=== PATIENT | female | born 1935 | race Caucasian/White ===

== ENCOUNTER 2017-08-22 22:32 | Inpatient (IN) | payer MEDICARE ==
[2017-08-22] MEDS ORDERED: Fentanyl 100 MCG/2 ML VIAL ONE (23:30)
[2017-08-23 00:20] LABS: #Eosinphils 0.2 thou/uL (0.0-0.7); #Lymphocytes 1.9 thou/uL (1.20-3.40); #Monocytes 0.7 thou/uL (0.11-0.59); #Neutrophils 9.4 thou/uL (1.40-6.50); %Basophils 0.2 % (0.0-1.0); %Eosinophils 1.8 % (0.0-10.0); %Lymphocytes 15.8 % (21.0-51.0); %Monocytes 5.6 % (0.0-10.0); %Neutrophils 76.5 % (42.0-75.0); Hemoglobin 7.5 g/dL (12.0-16.0); Mean Corpuscular HGB CONC 33.2 g/dL (32.0-36.0); Mean Corpuscular Hemoglobin 32.8 pg (27.0-31.0); Mean Corpuscular Volume 98.9 fl (81.0-99.0); Mean Platelet Volume 5.3 fL (7.4-10.4); Platelet Count 369 thou/uL (130-400); RBC Distribution Width 12.4 % (11.5-14.5); Red Blood Cell (RBC) Count 2.29 mill/uL (4.20-5.40); White Blood Cell (WBC) Count 12.3 thou/uL (4.8-10.8)
[2017-08-23] MEDS ORDERED: Ondansetron HCl/PF 4 MG/2 ML Vial IVP PRN (01:51)
[2017-08-23 02:12] LABS: #Eosinphils 0.2 thou/uL (0.0-0.7); #Lymphocytes 1.5 thou/uL (1.20-3.40); #Monocytes 0.6 thou/uL (0.11-0.59); #Neutrophils 11.1 thou/uL (1.40-6.50); %Basophils 0.1 % (0.0-1.0); %Eosinophils 1.2 % (0.0-10.0); %Lymphocytes 11.4 % (21.0-51.0); %Monocytes 4.6 % (0.0-10.0); %Neutrophils 82.6 % (42.0-75.0); Hemoglobin 7.2 g/dL (12.0-16.0); Mean Corpuscular HGB CONC 32.3 g/dL (32.0-36.0); Mean Corpuscular Hemoglobin 32.4 pg (27.0-31.0); Mean Platelet Volume 5.3 fL (7.4-10.4); Platelet Count 333 thou/uL (130-400); RBC Distribution Width 12.4 % (11.5-14.5); Red Blood Cell (RBC) Count 2.21 mill/uL (4.20-5.40); White Blood Cell (WBC) Count 13.5 thou/uL (4.8-10.8)
[2017-08-23] MEDS ORDERED: oxyCODONE/Acetaminophen 5 mg/325 mg Tablet PO PRN (02:29)
[2017-08-23 02:34] LABS: Anion Gap 14 mmol/L (10-20); BUN (Urea Nitrogen) 48 mg/dL (9.8-20.1); Calc. Creatinine Clearance 0 mL/min (70-130); Calcium 8.2 mg/dL (7.8-10.44); Carbon Dioxide 24 mmol/L (23-31); Chloride 95 mmol/L (98-107); Estimated GFR-MDRD 9; Glucose 120 mg/dL (83-110); Potassium 5.2 mmol/L (3.5-5.1); Sodium 128 mmol/L (136-145)
[2017-08-23] MEDS: Sodium Chloride 0.9% 1,000 ML IV SCH ×3 (02:35→21:11)
[2017-08-23] MEDS: Morphine 5 MG/ML SYRINGE SLOW IVP PRN ×2 (02:46→13:18)
[2017-08-23 02:57] VITALS: BMI 25.7
[2017-08-23] MEDS ORDERED: Furosemide 20 MG/2 ML VIAL SLOW IVP SCH (03:15)
[2017-08-23 05:21] LABS: Clarity Turbid (Clear); Specific Gravity, Urine 1.016 (1.002-1.036)
[2017-08-23 05:22] LABS: Leukocyte Unable to Interpret (Negative); Nitrite Unable to Interpret (Negative); pH, Urine 7.5 (5.0-9.0)
[2017-08-23 05:23] LABS: Bilirubin Unable to Interpret (Negative); Glucose, Urine (Dipstick) Unable to Interpret mg/dL (Negative); Protein, Urine (Dipstick) > or equal to 300 mg/dL (Neg-Trace); Urobilinogen UNABLE TO INTERPRET mg/dL (0.2-1.0)
[2017-08-23 05:25] LABS: Bacteria/HPF Rare-Few HPF (None Seen); Blood, Urine Unable to Interpret (Negative); Crystals/HPF 1+ AMORPH PHOS HPF (Negative); RBC/HPF GREATER THAN 50-TNTC HPF (0-3); Squamous Epithelial 0-3 HPF (0-3); WBC/HPF 21-50 HPF (0-3)
[2017-08-23] MEDS: Meropenem 1 GM in Sterile Water 20 ML SLOW IVP SCH ×2 (05:34→18:28)
[2017-08-23 07:47] LABS: #Basophils 0.1 thou/uL (0.0-0.2); #Eosinphils 0.1 thou/uL (0.0-0.7); #Lymphocytes 1.9 thou/uL (1.20-3.40); #Monocytes 0.5 thou/uL (0.11-0.59); #Neutrophils 7.8 thou/uL (1.40-6.50); %Basophils 0.7 % (0.0-1.0); %Eosinophils 1.4 % (0.0-10.0); %Lymphocytes 18.6 % (21.0-51.0); %Monocytes 4.6 % (0.0-10.0); %Neutrophils 74.7 % (42.0-75.0); Hemoglobin 7.1 g/dL (12.0-16.0); Mean Corpuscular HGB CONC 33.2 g/dL (32.0-36.0); Mean Corpuscular Volume 96.5 fl (81.0-99.0); Mean Platelet Volume 5.5 fL (7.4-10.4); Platelet Count 276 thou/uL (130-400); RBC Distribution Width 14.2 % (11.5-14.5); Red Blood Cell (RBC) Count 2.23 mill/uL (4.20-5.40); White Blood Cell (WBC) Count 10.4 thou/uL (4.8-10.8)
--- NOTE | 2017-08-23 08:03 | HP ---
CHIEF COMPLAINT: Dysuria. HISTORY OF PRESENT ILLNESS: This is an 81-year-old female with a known history of nonischemic cardiomyopathy, left bundle branch block, breast cancer, osteoarthritis, recurrent urinary tract infection, who presents with chief complaint of hematuria. It appears that the patient has had a long history of chronic kidney disease, accompanied by intermittent urinary tract infections. The patient did have a chronic indwelling Whitaker catheter placed approximately a month ago. At that point in time, at least the patient's family understanding was that the Whitaker catheter was placed to alleviate a degree of urinary retention and hopes that it might also improve the patient's renal disease. The patient felt that the catheter was uncomfortable and therefore, the Whitaker catheter was removed after 2 weeks of a trial period. Approximately 1.5 weeks ago, the patient again had a Whitaker catheter placed. She had clear urine going through her Whitaker catheter until earlier yesterday when she went to take a bath then afterwards felt that maybe she had dislodged the catheter. She started having some hematuria noted through the catheter at that point in time and per guidance from their outpatient urological team, the patient and her daughter at home self removed that catheter. However, the patient continued to have hematuria and therefore presented to the emergency department in [place], where a new Whitaker was placed and since then it has been draining bloody urine. In the emergency department in [place], the patient was also noted to have anemia with a hemoglobin of 7.8 compared to her prior last known hemoglobin of 10 and was therefore transferred to our facility for urological evaluation. At the time of my evaluation, the patient is accompanied by her daughter at bedside. The patient is mostly focused on the fact that she has pain where her catheter is and she requests pain medication several times during this interview. The patient's daughter at bedside helped to provide the majority of the history leading up to her current condition as noted above. REVIEW OF SYSTEMS: Constitutional: Denies any recent changes in weight. Denies any home fevers or chills. HEENT: No recent headaches, dizziness, or change in vision. Cardiovascular: No new any chest pressure, chest pain, left-sided arm numbness or tingling. Respiratory: Denies any recent URIs. denies any recent colds, cough, congestion, postnasal drip. Gastrointestinal: Denies any recent issues with nausea, vomiting, abdominal pain, constipation or diarrhea. Genitourinary : As per above. Musculoskeletal: No new myalgias or arthralgias. The remainder of the review of systems otherwise negative. PAST MEDICAL HISTORY: As per above, 1. Nonischemic cardiomyopathy with an EF of 35%, moderate coronary artery disease, recurrent urinary tract infections as noted above. 2. Chronic kidney disease. 3. History of breast cancer. 4. Osteoarthritis status post multiple orthopedic surgeries. 5. Status post bilateral knee replacement. 6. Status post bilateral hip replacement with subsequent revision surgery of the left hip. 7. Status post right shoulder surgery. 8. Status post lumbar spinal surgery. 9. Status post lumpectomy for breast cancer. HOME MEDICATIONS: Please see the EMR for full details. Briefly, the patient currently takes polyethylene glycol, atorvastatin, methimazole, acetaminophen, temazepam, metoprolol and potassium citrate. DRUG ALLERGIES: No known drug allergies. FAMILY HISTORY: The patient denies any known family history of renal disease, renal cancer, bladder disease, bladder cancer, difficulty with urinating. SOCIAL HISTORY: The patient lives at home, her daughter who lives with her at bedside. States that both herself and her sister, meaning the patient's 2 daughters would be the joint medical decision makers, if the patient is unable to make her own medical decisions. At this point in time, the patient endorses that she wishes to be a do not intubate, do not resuscitate; however, she is amenable to procedures and to blood transfusions if needed. PHYSICAL EXAMINATION: GENERAL: The patient is awake, alert, oriented to self and place. HEENT: Normocephalic, atraumatic. Slightly dry mucous membranes. Equal ocular motions are intact. CARDIOVASCULAR: S1, S2. No murmurs, rubs or gallops. Pulses 2+ bilateral upper extremities, no pitting pedal edema. RESPIRATORY: Reasonable air movement. Limited anterior examination. No wheezes, rales or rhonchi, otherwise clear to auscultation. ABDOMEN: Protuberant, positive bowel sounds, soft, slightly tender to palpation (6:36) suprapubic medial and suprapubic to the left, not tender to palpation right suprapubic region. Hwitaker is noted to be draining a dark maroon fluid. MUSCULOSKELETAL: Significant chronic sequelae of rheumatoid arthritis noted bilateral upper extremities. NEUROLOGIC: Able to move all 4 extremities independently on command and able to self reposition in the bed with minimal assistance. LABORATORY DATA AND IMAGING: WBC 13.5, hemoglobin 7.2, hematocrit 22.2, platelets 333, sodium 128, potassium 5.2, chloride 95, BUN 48, creatinine is 4.79, glucose 120, calcium 8.2. ASSESSMENT AND PLAN: 1. An 81-year-old female with chief complaint of hematuria, had one hematuria with accompanying symptomatic anemia with no other obvious source of blood loss. The patient currently has a Whitaker in place, Urology has been consulted. Serial H and H q.6 hours, transfuse as needed. Given that the patient does have a known history of cardiovascular disease. We will transfuse for a hemoglobin goal of 8.0. Unclear exact etiology of patient's hematuria. Will also order ultrasound of the bladder, ultrasound of the kidneys. 2. Acute anemia. Please see above. Currently, hemodynamically stable. Continue with IV fluids. Transfusion as noted above and continue to monitor. 3. Acute kidney injury on chronic renal disease. Appreciate Nephrology consultation. Ultrasound of the kidneys as noted above. The patient does have a known history of chronic renal disease. Hold nephrotoxic medications. IV fluids as above. Unclear etiology of progression of renal disease at this point in time. 4. Urinary tract infection despite appropriate empiric oral antibiotics based on prior urine cultures, it appears that in the past the patient has mostly grown beta hemolytic Streptococci and Escherichia coli from her urine. She states that she was previously taking Cipro for the last 4 days for urinary tract infection. She had an UA at [place] that suggested the possibility of urinary tract infection both confirmed by the presence of blood as well. Empiric meropenem given that the patient also has accompanying leukocytosis. 5. Leukocytosis could be reactive or could be indicative of active infection. Empiric antibiotics, IV fluids as above. 6. Suprapubic pain and dysuria. Multiple possible etiologies at this point in time, symptomatic management with low dose morphine with close monitoring the patient's respiratory and status of mentation. 7. Chronic insomnia for which the patient currently takes temazepam at home. Discussed with the patient, we will hold that medication, particularly in light of concurrent utilization of pain regimen. If her pain is controlled and she still has insomnia, can consider resuming home medication regimen. 8. History of cardiomyopathy, continue with the patient's home metoprolol. Close monitoring of the patient's respiratory status. Lasix 20 mg IV x1 between blood transfusion. 9. Diet: N.p.o. in case any evaluative procedures are needed for evaluation and treatment. 10. Activity: As tolerated. Deep venous thrombosis prophylaxis, sequentials. No pharmacological deep venous thrombosis prophylaxis secondary to concern of active bleed. 11. Admit the patient to inpatient medical/surgical with telemetry. Thank you for asking me to care for the patient. Questions or concerns, contact me at [facility]. ALEXEY
[2017-08-23] MEDS ORDERED: Meropenem 1 GM in Sodium Chloride 0.9% 100 ML IVPB SCH (09:00)
[2017-08-23] MEDS ORDERED: Famotidine/PF 20 mg/2ml Vial SLOW IVP SCH (09:00)
[2017-08-23] MEDS: Famotidine 40 MG/4 ML VIAL SLOW IVP SCH (09:00)
[2017-08-23] MEDS ORDERED: ePHEDrine/0.9% NaCl/PF SYRINGE 50 mg/10 ml ONE (09:28)
[2017-08-23] MEDS ORDERED: PHENYLEPHRINE-NS 100 MCG/ML 10 ML SYRINGE ONE (09:28)
[2017-08-23] MEDS ORDERED: PROPOFOL 200 MG/20 ML VIAL ONE (09:28)
[2017-08-23] MEDS ORDERED: Lidocaine 1% PF 5 ML VIAL ONE (09:28)
[2017-08-23] MEDS ORDERED: Polyethylene Glycol 3350 17 GM Packet PO PRN (09:29)
--- NOTE | 2017-08-23 11:39 | ULT ---
BILATERAL RENAL ULTRASOUND: Date: 08/23/17 HISTORY: Hematuria. COMPARISON: None. TECHNIQUE: Sagittal and transverse imaging of the kidneys is performed. FINDINGS: Suboptimal evaluation of the right kidney. Grossly, no hydronephrosis. Right kidney measures 10.7 x 6.0 x 6.0 cm. There is a hypoechoic focus in the right kidney measuring 2.0 x 2.2 x 2.0 cm, which may represent a small cyst. There is a second smaller hypoechoic focus with subtle areas of increased ec hogenicity in the right kidney measuring 1.6 x 1.6 x 1.6 cm. Hemorrhagic or complex cyst is favored. There is severe left-sided hydronephrosis. Left kidney measures 6.0 x 6.5 x 11.6 cm. There is a Whitaker catheter in the urinary bladder. There is a large echogenic focus in the dependent p ortion of the urinary bladder measuring 10.0 x 7.6 x 9.6 cm. Differential considerations include a la rge amount of clot in the urinary bladder. Mucosal based abnormality such as neoplasm cannot be exclu ded. IMPRESSION: 1. Severe left-sided hydronephrosis. 2. Extensive echogenic material in the urinary bladder as defined above. Clinical correlation is ess ential. Cystoscopy, as well as a urology consult, is strongly recommended. CODE T. POS: ANDRE
--- NOTE | 2017-08-23 12:55 | CON ---
DATE OF CONSULTATION: 08/23/2017 CONSULTING PHYSICIAN: Dr. Long REASON FOR CONSULTATION: Acute kidney injury. REASON FOR ADMISSION: Hematuria and dysuria. HISTORY OF PRESENT ILLNESS: An 81-year-old white female with history of chronic kidney disease stage 4, CHF, osteoarthritis, acidosis, nephrolithiasis, came to the hospital with hematuria and dysuria. The patient is being admitted. She had a renal ultrasound done which showed blockage. Her creatini ne baseline runs around 2.5 to 2.7 with the last one around early part of July and was found to h ave elevated this month and this morning this was found to be 4.7. She was also anemic at 7.1. She was on Epogen as outpatient and hemoglobin usually runs around 9 and 10. She was given some blood tr ansfusion and she is waiting for Urology consult. No fever or chills. She is having abdominal diste ntion and abdominal discomfort. She is currently kept n.p.o. No fever or chills reported. Daughter was at the bedside. PAST MEDICAL HISTORY: Positive for CHF, chronic kidney disease stage 4, history of breast cancer an d metabolic acidosis, anemia. PAST SURGICAL HISTORY: Knee replacement and shoulder surgery and spinal surgery. HOME MEDICATIONS: Methimazole, Restoril, Toprol and Epogen. ALLERGIES: No known drug allergies. SOCIAL HISTORY: No smoking, alcohol or drugs. FAMILY HISTORY: No history of kidney disease reported. REVIEW OF SYSTEMS: The following complete review of systems was negative, unless otherwise mentioned in the HPI or below: Constitutional: Weight loss or gain, ability to conduct usual activities. Skin: Rash, itching. Eyes: Double vision, pain. ENT/Mouth: Nose bleeding, neck stiffness, pain, tenderness. Cardiovascular: Palpitations, dyspnea on exertion, orthopnea. Respiratory: Shortness of breath, wheezing, cough, hemoptysis, fever or night sweats. Gastrointestinal: Poor appetite, abdominal pain, heartburn, nausea, vomiting, constipation, or diarrhea. Genitourinary: Urgency, frequency, dysuria, nocturia. Musculoskeletal: Pain, swelling. Neurologic/Psychiatric: Anxiety, depression. Allergy/Immunologic: Skin rash, bleeding tendency. PHYSICAL EXAMINATION: GENERAL: This is a thin-built female in no apparent distress. VITAL SIGNS: Temperature 98.1, pulse 91, respiratory 18, blood pressure 113/57. HEENT: Atraumatic, normocephalic. Oral mucosa is moist. NECK: Supple. HEART: S1, S2 heard. Rate and rhythm regular. RESPIRATORY: Clear. MUSCULOSKELETAL: No tenderness, no edema. DERMATOLOGIC: No skin rash. NEUROLOGIC: Alert, awake. PSYCHIATRIC: Mood and affect normal. LABORATORY AND X-RAY FINDINGS: Hemoglobin 7.1, potassium is 5.2, sodium is 128, BUN 48, creatinine i s 4.7. ASSESSMENT AND PLAN: 1. Acute kidney injury on chronic kidney stage 4. Renal function with worsening most likely from ob struction, renal ultrasound that shows left side obstruction. Follow with Urology. 2. Hyperkalemia. 3. Hyponatremia. 4. Hypochloremia. 5. Anemia. Agree with transfusion. 6. Left-sided hydronephrosis. 7. Hematuria, rule out infection. 8. Anemia. We will continue Epogen once a week. Continue supportive care. No acute indication for dialysis. We will follow.
[2017-08-23] MEDS ORDERED: Epoetin (ESRD) 10,000 UNITS/ML VIAL SC SCH (13:00)
[2017-08-23] MEDS ORDERED: Famotidine 40 MG/4 ML VIAL SLOW IVP SCH (13:30)
[2017-08-23] MEDS: Atorvastatin Calcium 20 MG TAB PO SCH (13:32)
[2017-08-23] MEDS: Methimazole 5 MG TAB PO SCH (13:33)
[2017-08-23 13:55] LABS: #Basophils 0.1 thou/uL (0.0-0.2); #Eosinphils 0.1 thou/uL (0.0-0.7); #Lymphocytes 1.5 thou/uL (1.20-3.40); #Monocytes 0.5 thou/uL (0.11-0.59); #Neutrophils 5.8 thou/uL (1.40-6.50); %Basophils 0.8 % (0.0-1.0); %Eosinophils 1.4 % (0.0-10.0); %Lymphocytes 18.4 % (21.0-51.0); %Monocytes 5.9 % (0.0-10.0); %Neutrophils 73.6 % (42.0-75.0); Hemoglobin 8.6 g/dL (12.0-16.0); Mean Corpuscular HGB CONC 32.9 g/dL (32.0-36.0); Mean Corpuscular Hemoglobin 31.9 pg (27.0-31.0); Mean Platelet Volume 5.6 fL (7.4-10.4); Platelet Count 287 thou/uL (130-400); RBC Distribution Width 14.3 % (11.5-14.5); Red Blood Cell (RBC) Count 2.69 mill/uL (4.20-5.40); White Blood Cell (WBC) Count 7.9 thou/uL (4.8-10.8)
[2017-08-23 14:32] LABS: Anion Gap 13 mmol/L (10-20); BUN (Urea Nitrogen) 45 mg/dL (9.8-20.1); Calc. Creatinine Clearance 9 mL/min (70-130); Calcium 8.1 mg/dL (7.8-10.44); Carbon Dioxide 23 mmol/L (23-31); Chloride 97 mmol/L (98-107); Estimated GFR-MDRD 9; Glucose 108 mg/dL (83-110); Potassium 5.3 mmol/L (3.5-5.1); Sodium 128 mmol/L (136-145)
--- NOTE | 2017-08-23 14:48 | PDOC.PN ---
- Subjective Encounter Start Date: 08/23/17 Encounter Start Time: 14:47 Subjective: still with suprapubic tenderness and pain -: care discussed w daughter in detail - Objective Resuscitation Status: Resuscitation Status DNR:Do Not Resuscitate MAR Reviewed: Yes Vital Signs & Weight: Vital Signs (12 hours) Temp Pulse Pulse Resp BP BP Pulse Ox 08/23/17 11:45 98.1 F 94 20 113/57 L 95 08/23/17 08:01 99.0 F 83 16 94 L 08/23/17 07:48 99.0 F 83 16 100/56 L 94 L 08/23/17 05:45 98.3 F 79 18 95/53 L 08/23/17 05:30 99.4 F 88 18 109/50 L 08/23/17 04:41 98.6 F 87 18 104/59 L 93 L Weight Weight 140 lb 8 oz I&O: 08/22/17 08/23/17 08/24/17 06:59 06:59 06:59 Intake Total 375 773 Output Total 1900 250 Balance -1525 523 Result Diagrams: 08/23/17 13:37 08/23/17 13:37 Additional Labs: Laboratory Tests 06/10/17 07/08/17 08/04/17 08:53 09:00 08:33 Hgb Sodium Creatinine 2.73 H 2.53 H 3.54 H 08/22/17 08/22/17 08/23/17 19:45 23:59 02:02 Hgb 7.5 L Sodium 128 L Creatinine 4.80 H 4.79 H 08/23/17 08/23/17 08/23/17 02:02 07:35 13:37 Hgb 7.2 L 7.1 L 8.6 L Sodium Creatinine 08/23/17 13:37 Hgb Sodium 128 L Creatinine 4.73 H Radiology Reviewed by me: Yes (Renal US-severe L hydronephrosis.Bladder clot w distension) Phys Exam - Physical Examination Constitutional: NAD pale HEENT: PERRLA, moist MMs, sclera anicteric, oral pharynx no lesions Neck: no nodes, no JVD, supple, full ROM Respiratory: no wheezing, no rales, no rhonchi, clear to auscultation bilateral Cardiovascular: RRR, no significant murmur Gastrointestinal: soft, no distention suprapubic tenderness Musculoskeletal: no edema, pulses present Neurological: non-focal, normal sensation, moves all 4 limbs Psychiatric: normal affect, A&O x 3 Skin: no rash Dx/Plan (1) Acute on chronic kidney failure Code(s): N17.9 - ACUTE KIDNEY FAILURE, UNSPECIFIED; N18.9 - CHRONIC KIDNEY DISEASE, UNSPECIFIED Status: Acute (2) Hematuria Code(s): R31.9 - HEMATURIA, UNSPECIFIED Status: Acute (3) Hydronephrosis, left Code(s): N13.30 - UNSPECIFIED HYDRONEPHROSIS Status: Acute (4) Acute blood loss anemia Code(s): D62 - ACUTE POSTHEMORRHAGIC ANEMIA Status: Acute (5) Hyponatremia Code(s): E87.1 - HYPO-OSMOLALITY AND HYPONATREMIA Status: Acute (6) UTI (urinary tract infection) Status: Acute (7) Non-ischemic cardiomyopathy Code(s): I42.8 - OTHER CARDIOMYOPATHIES Status: Acute (8) HLD (hyperlipidemia) Code(s): E78.5 - HYPERLIPIDEMIA, UNSPECIFIED Status: Chronic - Plan cont current plan of care, continue antibiotics, DVT proph w/SCDs care discussed w urology -will see pt in PM.US results notified -: Keep NPO.may need cystoscopy/bladder irrigation. -: H/h improved post 2 unit transfusion.Monitor -: Renal Fx stable but worse than baselimne d/t severe L hydronephrosis -: nephrology recs appreciated. * .change Whitaker. Bladder scan w 100 cc in am.will repeat bladder scan * Sodium low ? etiology. Cont NS and monitor closely w slow correction goal.nephrology on board. * cont empiric antibiotic. follow Cx results * am labs Review of Systems - Review of Systems Constitutional: weakness, malaise Gastrointestinal: Abdominal Pain Genitourinary: Hematuria - Medications/Allergies Allergies/Adverse Reactions: Allergies Allergy/AdvReac Type Severity Reaction Status Date / Time No Known Drug Allergies Allergy Verified 10/22/14 09:20 Medications: Current Medications Acetaminophen (Tylenol) 650 mg PO Q4H PRN PRN Reason: Pain Atorvastatin Calcium (Lipitor) 20 mg PO DAILY NIKO Last Admin: 08/23/17 13:32 Dose: 20 mg Epoetin Guanaco (Procrit) 10,000 units SC Q7D [facility] Last Admin: 08/23/17 14:07 Dose: 10,000 units Famotidine (Pepcid) 20 mg SLOW IVP Q24HR [facility] Last Admin: 08/23/17 14:09 Dose: Not Given Famotidine (Pepcid) 20 mg SLOW IVP NOW [facility] Stop: 08/23/17 15:00 Last Admin: 08/23/17 14:21 Dose: 20 mg Sodium Chloride (Normal Saline 0.9%) 1,000 mls @ 100 mls/hr IV .Q10H [facility] Last Admin: 08/23/17 13:18 Dose: 1,000 mls Meropenem 1 gm/ Sterile Water 20 mls @ 240 mls/hr SLOW IVP 0600,1800 [facility] Last Admin: 08/23/17 05:34 Dose: 20 mls Methimazole () 5 mg PO DAILY [facility] Last Admin: 08/23/17 13:33 Dose: 5 mg Metoprolol Succinate (Toprol Xl) 12.5 mg PO BID [facility] Last Admin: 08/23/17 13:32 Dose: 12.5 mg Morphine Sulfate (Morphine) 2 mg SLOW IVP Q4H PRN PRN Reason: Breakthrough Pain Last Admin: 08/23/17 13:18 Dose: 2 mg Ondansetron HCl (Zofran) 4 mg IVP Q6H PRN PRN Reason: Nausea/Vomiting Oxycodone/Acetaminophen (Percocet 5/325) 1 tab PO Q4H PRN PRN Reason: Severe Pain (7-10) Last Admin: 08/23/17 05:33 Dose: 1 tab Polyethylene Glycol (Miralax) 17 gm PO DAILYPRN PRN PRN Reason: Constipation Sodium Chloride (Flush - Normal Saline) 10 ml IVF Q12HR [facility] Sodium Chloride (Flush - Normal Saline) 10 ml IVF PRN PRN PRN Reason: Saline Flush
--- NOTE | 2017-08-23 18:58 | CON ---
DATE OF CONSULTATION: 08/23/2017 CHIEF COMPLAINT: Gross hematuria. HISTORY: Ms. Mo is an 81-year-old female with a long history of renal insufficiency and incompl ete bladder emptying. She typically has postvoid residuals of 200 to 500 mL. Recently, she came to the office requesting a Whitaker catheter for the incomplete bladder emptying. She had a catheter place d on 08/09/2017. She did well with the catheter until 3 days ago when she developed gross hematuria. She continued to have problems with gross hematuria and urine was coming around the catheter, so luis spence presented to the emergency room. In the emergency room, she had an ultrasound demonstrated left-si ded hydronephrosis and some echogenic material in the bladder. She has a prior history of hydronephr osis of the left kidney, although it was not persistent. She has tolerated Whitaker catheters in the [facility] without any bleeding issues. She has had chronic renal insufficiency with creatinines typically r unning in the 2.5 range. During this admission, her creatinine was elevated to 4.7. She is also not ed to be anemic with a hemoglobin of 7 and then received 2 units of blood. PAST MEDICAL HISTORY: Rheumatoid arthritis, chronic renal insufficiency, congestive heart failure, c hronic anemia, history of breast cancer. PAST SURGICAL HISTORY: Knee replacement surgery, shoulder surgery, spine surgery. HOME MEDICATIONS: Toprol, Epogen, Restoril and methimazole. ALLERGIES: No known drug allergies. SOCIAL HISTORY: She is a nonsmoker, denies excessive alcohol use. FAMILY HISTORY: Noncontributory. REVIEW OF SYSTEMS: Respiratory: No shortness of breath. Cardiovascular: Denies chest pain or palp itations. Gastrointestinal: Denies chronic constipation, diarrhea. Genitourinary: Please see hist ory of present illness. Neurologic: No symptoms of stroke. PHYSICAL EXAMINATION: GENERAL: She is awake and alert. She is in no distress at this time. VITAL SIGNS: Most recent vital signs, temperature 98.3, blood pressure 122/56, pulse 94, respiratory rate 16. LABORATORY DATA: Sodium 128, potassium 5.3, chloride 97, BUN 45, creatinine 4.7. White count 7.9, h emoglobin 8.6, hematocrit 26.1. IMPRESSION: Ms. Mo is an 81-year-old female with chronic renal insufficiency and long history o f incomplete bladder emptying. She has developed gross hematuria. This is a new problem as she has never had gross hematuria in the past. She has had hydronephrosis in the left kidney past, but not t o a severe degree. This was noted on an ultrasound during this admission. She was also noted to hav e some echogenic material in the bladder. I have recommended cystoscopy with clot evacuation, possib le TURBT and left ureteral stent placement. The procedure, potential limitations, alternatives, and complications have been discussed with her and her daughter. She wished to proceed. PLAN: Cystoscopy, clot evacuation, possible TURBT, possible double-J stent placement, left kidney.
[2017-08-23 19:49] LABS: #Eosinphils 0.1 thou/uL (0.0-0.7); #Lymphocytes 1.3 thou/uL (1.20-3.40); #Monocytes 0.6 thou/uL (0.11-0.59); %Basophils 0.2 % (0.0-1.0); %Eosinophils 0.8 % (0.0-10.0); %Monocytes 5.1 % (0.0-10.0); %Neutrophils 81.8 % (42.0-75.0); Hemoglobin 8.5 g/dL (12.0-16.0); Mean Corpuscular HGB CONC 33.5 g/dL (32.0-36.0); Mean Corpuscular Hemoglobin 31.7 pg (27.0-31.0); Mean Corpuscular Volume 94.6 fl (81.0-99.0); Mean Platelet Volume 5.3 fL (7.4-10.4); Platelet Count 273 thou/uL (130-400); RBC Distribution Width 14.4 % (11.5-14.5); Red Blood Cell (RBC) Count 2.67 mill/uL (4.20-5.40)
[2017-08-23] MEDS ORDERED: Fentanyl 250 MCG/5 ML VIAL ONE (22:50)
[2017-08-23] MEDS ORDERED: Iothalamate Meglumine 60% 50 ML VIAL FS ONE (22:50)
[2017-08-24] MEDS ORDERED: Ondansetron HCl/PF 4 MG/2 ML Vial IVP PRN (00:13)
[2017-08-24] MEDS ORDERED: Promethazine HCl 25 MG/ML VIAL SLOW IVP PRN (00:13)
[2017-08-24] MEDS ORDERED: Promethazine HCl 25 MG/ML VIAL IM PRN (00:13)
[2017-08-24 03:31] LABS: #Eosinphils 0.1 thou/uL (0.0-0.7); #Lymphocytes 1.8 thou/uL (1.20-3.40); #Monocytes 0.6 thou/uL (0.11-0.59); #Neutrophils 6.8 thou/uL (1.40-6.50); %Basophils 0.5 % (0.0-1.0); %Eosinophils 0.9 % (0.0-10.0); %Lymphocytes 19.2 % (21.0-51.0); %Monocytes 5.9 % (0.0-10.0); %Neutrophils 73.4 % (42.0-75.0); Hemoglobin 11.2 g/dL (12.0-16.0); Mean Corpuscular Hemoglobin 31.4 pg (27.0-31.0); Mean Corpuscular Volume 95.3 fl (81.0-99.0); Platelet Count 192 thou/uL (130-400); RBC Distribution Width 14.9 % (11.5-14.5); Red Blood Cell (RBC) Count 3.58 mill/uL (4.20-5.40); White Blood Cell (WBC) Count 9.2 thou/uL (4.8-10.8)
[2017-08-24 03:45] LABS: Anion Gap 17 mmol/L (10-20); BUN (Urea Nitrogen) 44 mg/dL (9.8-20.1); Calc. Creatinine Clearance 10 mL/min (70-130); Calcium 8.4 mg/dL (7.8-10.44); Carbon Dioxide 18 mmol/L (23-31); Chloride 104 mmol/L (98-107); Estimated GFR-MDRD 9; Glucose 99 mg/dL (83-110); Potassium 5.1 mmol/L (3.5-5.1); Sodium 134 mmol/L (136-145)
[2017-08-24] MEDS: Morphine 5 MG/ML SYRINGE SLOW IVP PRN (04:20)
--- NOTE | 2017-08-24 04:20 | CON ---
DATE OF PROCEDURE: 08/24/2017 PREOPERATIVE DIAGNOSES: Gross hematuria, left hydronephrosis. POSTOPERATIVE DIAGNOSIS: Bladder cancer, clot retention, obstructed left ureter from tumor. SURGEON: Douglas Mckee M.D. ANESTHESIA: General. INDICATIONS: Ms. Mo is an 81-year-old female who has a long history of incomplete bladder emptying. She had a Whitaker catheter placed approximately 2 weeks ago. Two days ago she developed gross hematuria. She presented to the hospital and was noted to be in clot retention. Imaging included a renal ultrasound that demonstrated a marked left hydronephrosis and a large 10 cm mass in her bladder. She is brought to the operating room for endoscopic evaluation. PROCEDURE IN DETAIL: The patient was given general anesthesia and IV antibiotics. She is sterilely prepped and draped in lithotomy position. The cystoscope was passed in the bladder. Bladder was full of clot. Prolonged hand irrigation of the bladder was required to deem her clot free. There was a huge amount of clot in her bladder. Once all of the clot was evacuated she was noted to have a 5 cm tumor in the left bladder wall covering the left ureteral orifice which could never be visualized. The right ureteral orifice appeared normal. Transurethral resection of the tumor was performed. After complete resection of the tumor and hemostasis a 3-way Whitaker catheter was placed and continuous bladder irrigation was initiated in the operating room. The catheter irrigated easily and clearly. The patient tolerated the procedure well. She was transported from the operating room to recovery room in stable condition. COMPLICATIONS: None. ESTIMATED BLOOD LOSS: During the procedure, approximately 20 mL, although, there was at least 1 liter of clot in her bladder. ALEXEY
[2017-08-24] MEDS: Meropenem 1 GM in Sterile Water 20 ML SLOW IVP SCH ×2 (05:34→18:06)
[2017-08-24 09:46] LABS: #Eosinphils 0.1 thou/uL (0.0-0.7); #Lymphocytes 1.3 thou/uL (1.20-3.40); #Monocytes 0.5 thou/uL (0.11-0.59); #Neutrophils 6.9 thou/uL (1.40-6.50); %Basophils 0.5 % (0.0-1.0); %Eosinophils 0.6 % (0.0-10.0); %Lymphocytes 14.5 % (21.0-51.0); %Monocytes 5.6 % (0.0-10.0); %Neutrophils 78.8 % (42.0-75.0); Hemoglobin 8.9 g/dL (12.0-16.0); Mean Corpuscular Hemoglobin 30.7 pg (27.0-31.0); Mean Corpuscular Volume 93.1 fl (81.0-99.0); Mean Platelet Volume 5.2 fL (7.4-10.4); Platelet Count 213 thou/uL (130-400); RBC Distribution Width 14.9 % (11.5-14.5); White Blood Cell (WBC) Count 8.7 thou/uL (4.8-10.8)
[2017-08-24 09:54] LABS: INR-International Normal Ratio 1.2; PTT 24.4 SEC (22.9-36.1); Prothrombin Time 14.9 SEC (12.0-14.7)
[2017-08-24] MEDS: Famotidine 40 MG/4 ML VIAL SLOW IVP SCH (10:20)
[2017-08-24] MEDS: Atorvastatin Calcium 20 MG TAB PO SCH (10:20)
[2017-08-24] MEDS: Methimazole 5 MG TAB PO SCH (10:20)
[2017-08-24] MEDS: Sodium Chloride 0.9% 1,000 ML IV SCH ×2 (10:20→18:06)
[2017-08-24] MEDS ORDERED: Fentanyl 100 MCG/2 ML VIAL ONE (11:34)
[2017-08-24] MEDS ORDERED: Midazolam HCl 2 mg/2 ml Vial ONE (11:34)
[2017-08-24] MEDS ORDERED: Sodium Bicarbonate 2.5 MEQ/5 ML VIAL ONE (11:34)
--- NOTE | 2017-08-24 13:53 | CT ---
CT GUIDED LEFT PERCUTANEOUS NEPHROSTOMY TUBE PLACEMENT: Date: 08-24-17 History: Left hydronephrosis in patient with hematuria and echogenic material seen in the urinary narayan dder on recent renal sonogram. Place of a left ureteral stent was unsuccessful. A percutaneous nephro stomy tube as requested. Technique: The procedure including risks and complications were explained to the patient as well as the patient' s family and informed consent was obtained. The patient is on IV antibiotic prior to this procedure. The patient was placed on angiographic table in supine position and limited sonographic evaluation of the left kidney was performed. However, the kidney was noted to be rotated an due to close proximity of bowel and spleen on sonographic evaluation, the patient was transported to CT scan for further ev aluation of adjacent structures prior to nephrostomy tube placement. The patient was placed on the CT scan stable in the prone position. Limited noncontrast CT images wer e obtained through the level of the kidneys with good localizer in place overlying the left kidney. I maging demonstrated rotation of the kidney with the long axis of the kidney oriented in the AP dimens ion. Kidney was also slightly displaced anteriorly which is related to the rotated nature of the kidn ey. The area overlying the left kidney was then marked and meticulously prepped and draped in the usu al sterile fashion. Skin and subcutaneous tissues were infiltrated with buffered 1% Lidocaine for loc al anesthesia. Conscious sedation was performed with the intravenous administration of 25 mg of Fenta nyl and 0.5 mg of Versed. The area overlying the right flank was meticulously prepped and draped in the usual sterile fashion. Skin and subcutaneous tissues were infiltrated with buffered 1% Lidocaine for local anesthesia. A 22 gauge Chiba needle was advanced followed by three axial noncontrasted CT images. This sequence w as repeated until the needle was placed into a peripheral dilated left renal stefan. The needle was th en exchanged over a .018 inch guidewire for a 6 Yemeni accustick sheath with stiff inter cannula in t he inter dilator. Positioning of the accustick sheath was confirmed with axial noncontrasted CT image s. The introducer sheath was then exchanged over a .035 inch Amplax guidewire for an 8 Yemeni tissue dil ator followed by placement of an 8 Yemeni percutaneous nephrostomy tube. The distal portion of the ne phrostomy tube as positioned in the left renal pelvis. Slightly blood tinged urine was aspirated from the collecting system, and a specimen was sent for labs. The catheter was placed to gravity drainage and sutured in place utilizing 2-0 ethilon suture materia l. Dry sterile dressing was placed. The patient tolerated the procedure well without immediate complication. Patient was transported to h ospital room in stable condition. FINDINGS: Rotation of the left kidney with the long axis oriented in the AP dimensions. As a result, this proce dure was performed utilizing CT guidance due to close proximity of bowel and spleen to the left kidne y. An 8 Yemeni nephrostomy tube was successfully placed via a peripheral stefan with the distal portio n positioned in the renal pelvis. Initial imaging of the kidneys includes a portion of the upper pelvis demonstrates distention of the urinary bladder. The urinary bladder is incompletely imaged on this exam. IMPRESSION: 1. Left hydronephrosis with technically successful placement of an left sided percutaneous nephrostom y tube. 2. Incomplete visualization of the urinary bladder on the obtained images, but the urinary bladder do es appear distended. POS: ANDRE
[2017-08-24] MEDS: HYDROcodone/Acetaminophen 5/325 mg Tablet PO PRN ×2 (14:04→18:12)
[2017-08-24 14:30] LABS: #Eosinphils 0.1 thou/uL (0.0-0.7); #Lymphocytes 0.9 thou/uL (1.20-3.40); #Monocytes 0.5 thou/uL (0.11-0.59); #Neutrophils 8.2 thou/uL (1.40-6.50); %Basophils 0.5 % (0.0-1.0); %Eosinophils 0.8 % (0.0-10.0); %Lymphocytes 9.2 % (21.0-51.0); %Monocytes 5.1 % (0.0-10.0); %Neutrophils 84.3 % (42.0-75.0); Hemoglobin 8.8 g/dL (12.0-16.0); Mean Corpuscular HGB CONC 32.4 g/dL (32.0-36.0); Mean Corpuscular Volume 95.8 fl (81.0-99.0); Mean Platelet Volume 5.7 fL (7.4-10.4); Platelet Count 206 thou/uL (130-400); Red Blood Cell (RBC) Count 2.83 mill/uL (4.20-5.40); White Blood Cell (WBC) Count 9.7 thou/uL (4.8-10.8)
--- NOTE | 2017-08-24 15:39 | PDOC.PN ---
- Subjective Encounter Start Date: 08/24/17 Encounter Start Time: 15:39 Subjective: s/p nephrostomy tube this am.s/p cystoscopy last night -: feelw well. no new complaint - Objective Resuscitation Status: Resuscitation Status DNR:Do Not Resuscitate MAR Reviewed: Yes Vital Signs & Weight: Vital Signs (12 hours) Temp Pulse Pulse Resp BP BP Pulse Ox 08/24/17 12:43 98.1 F 86 18 119/70 95 08/24/17 08:00 98.1 F 86 16 94 L 08/24/17 07:25 98.1 F 86 16 136/82 95 08/24/17 04:42 98.3 F 97 16 127/65 98 08/24/17 03:54 98.3 F 97 18 127/65 Weight Weight 140 lb 8 oz I&O: 08/23/17 08/24/17 08/25/17 06:59 06:59 06:59 Intake Total 375 06636 6000 Output Total 1900 13861 6426 Balance -5846 -906 -475 Result Diagrams: 08/24/17 14:21 08/24/17 03:25 Additional Labs: Microbiology 08/23/17 04:45 Urine hensley catheter Urine Culture - Preliminary NO GROWTH AT 24 HOURS Laboratory Tests 08/23/17 08/23/17 08/24/17 02:02 13:37 03:25 Sodium 128 L 128 L 134 L Creatinine 4.79 H 4.73 H 4.59 H Phys Exam - Physical Examination Constitutional: NAD HEENT: PERRLA, moist MMs, sclera anicteric, oral pharynx no lesions Neck: no nodes, no JVD, supple, full ROM Respiratory: no wheezing, no rales, no rhonchi, clear to auscultation bilateral Cardiovascular: RRR, no significant murmur Gastrointestinal: soft, non-tender, no distention, positive bowel sounds 3 way hensley w bloody urine in bag.L nephrostomy tube in place Musculoskeletal: no edema, pulses present Neurological: non-focal, normal sensation, moves all 4 limbs Psychiatric: normal affect, A&O x 3 Skin: no rash Dx/Plan (1) Acute on chronic kidney failure Code(s): N17.9 - ACUTE KIDNEY FAILURE, UNSPECIFIED; N18.9 - CHRONIC KIDNEY DISEASE, UNSPECIFIED Status: Acute (2) Acute blood loss anemia Code(s): D62 - ACUTE POSTHEMORRHAGIC ANEMIA Status: Acute Comment: s/p 4 unit transfusion (3) Bladder cancer Status: Acute (4) Hydronephrosis, left Code(s): N13.30 - UNSPECIFIED HYDRONEPHROSIS Status: Acute (5) Hematuria Code(s): R31.9 - HEMATURIA, UNSPECIFIED Status: Acute (6) Hyponatremia Code(s): E87.1 - HYPO-OSMOLALITY AND HYPONATREMIA Status: Acute (7) UTI (urinary tract infection) Status: Acute (8) Non-ischemic cardiomyopathy Code(s): I42.8 - OTHER CARDIOMYOPATHIES Status: Acute (9) HLD (hyperlipidemia) Code(s): E78.5 - HYPERLIPIDEMIA, UNSPECIFIED Status: Chronic - Plan plan discussed w/ family, PT/OT, out of bed/ambulate, DVT proph w/SCDs cont continous bladder irrigation.urology help appreciated. -: S/P nephrostomy tube.s/p bladder tumor removal.Path pending -: H/H stable.monitor. -: potassium higher side.monitor.sodium much better.renal Fx stable. -: nephrology following.Avoid any nephrotoxic meds * .D/W daughter. leaning towrds more conservative approach * am labs * supportive care. * DNR Review of Systems - Review of Systems Constitutional: negative: fever, chills, sweats, weakness, malaise, other ENT: negative: Ear Pain, Ear Discharge, Nose Pain, Nose Discharge, Nose Congestion, Mouth Pain, Mouth Swelling, Throat Pain, Throat Swelling, Other Respiratory: negative: Cough, Dry, Shortness of Breath, Hemoptysis, SOB with Excertion, Pleuritic Pain, Sputum, Wheezing Cardiovascular: negative: chest pain, palpitations, orthopnea, paroxysmal nocturnal dyspnea, edema, light headedness, other Gastrointestinal: negative: Nausea, Vomiting, Abdominal Pain, Diarrhea, Constipation, Melena, Hematochezia, Other Genitourinary: negative: Dysuria, Frequency, Incontinence, Hematuria, Retention , Other Musculoskeletal: negative: Neck Pain, Shoulder Pain, Arm Pain, Back Pain, Hand Pain, Leg Pain, Foot Pain, Other Skin: negative: Rash, Lesions, Humberto, Bruising, Other Neurological: negative: Weakness, Numbness, Incoordination, Change in Speech, Confusion, Seizures, Other - Medications/Allergies Allergies/Adverse Reactions: Allergies Allergy/AdvReac Type Severity Reaction Status Date / Time No Known Drug Allergies Allergy Verified 10/22/14 09:20 Medications: Current Medications Acetaminophen (Tylenol) 650 mg PO Q4H PRN PRN Reason: Pain Hydrocodone Bitart/Acetaminophen ([place] 5/325) 1 tab PO Q4H PRN PRN Reason: Pain Last Admin: 08/24/17 14:04 Dose: 1 tab Atorvastatin Calcium (Lipitor) 20 mg PO DAILY [facility] Last Admin: 08/24/17 10:20 Dose: Not Given Epoetin Guanaco (Procrit) 10,000 units SC Q7D [facility] Last Admin: 08/23/17 14:07 Dose: 10,000 units Famotidine (Pepcid) 20 mg SLOW IVP Q24HR [facility] Last Admin: 08/24/17 10:20 Dose: Not Given Sodium Chloride (Normal Saline 0.9%) 1,000 mls @ 100 mls/hr IV .Q10H [facility] Last Admin: 08/24/17 10:20 Dose: Not Given Meropenem 1 gm/ Sterile Water 20 mls @ 240 mls/hr SLOW IVP 0600,1800 [facility] Last Admin: 08/24/17 05:34 Dose: 20 mls Methimazole () 5 mg PO DAILY [facility] Last Admin: 08/24/17 10:20 Dose: Not Given Metoprolol Succinate (Toprol Xl) 12.5 mg PO BID [facility] Last Admin: 08/24/17 10:20 Dose: Not Given Morphine Sulfate (Morphine) 2 mg SLOW IVP Q4H PRN PRN Reason: Breakthrough Pain Last Admin: 08/24/17 04:20 Dose: 2 mg Ondansetron HCl (Zofran) 4 mg IVP Q6H PRN PRN Reason: Nausea/Vomiting Last Admin: 08/24/17 04:28 Dose: 4 mg Oxycodone/Acetaminophen (Percocet 5/325) 1 tab PO Q4H PRN PRN Reason: Severe Pain (7-10) Last Admin: 08/23/17 05:33 Dose: 1 tab Polyethylene Glycol (Miralax) 17 gm PO DAILYPRN PRN PRN Reason: Constipation Sodium Chloride (Flush - Normal Saline) 10 ml IVF Q12HR [facility] Last Admin: 08/24/17 10:21 Dose: Not Given Sodium Chloride (Flush - Normal Saline) 10 ml IVF PRN PRN PRN Reason: Saline Flush
--- NOTE | 2017-08-24 20:36 | EKG ---
Test Reason : URGENT Blood Pressure : / mmHG Vent. Rate : 098 BPM Atrial Rate : 098 BPM P-R Int : 116 ms QRS Dur : 152 ms QT Int : 422 ms P-R-T Axes : 075 -41 073 degrees QTc Int : 538 ms Atrial-sensed ventricular-paced rhythm Abnormal ECG When compared with ECG of 23-AUG-2017 00:22, (Unconfirmed) Vent. rate has increased BY 14 BPM Confirmed by OLAYINKA GARCIA, . SBa ([id number]) on 08/24/2017 8:35:52 PM Referred By: HOLLAND Confirmed By:DR. Risa BHAGAT MD
[2017-08-24] MEDS: Temazepam 15 MG CAP PO PRN (21:41)
[2017-08-25] MEDS: Sodium Chloride 0.9% 1,000 ML IV SCH ×3 (01:47→12:37)
[2017-08-25 05:26] LABS: #Eosinphils 0.2 thou/uL (0.0-0.7); #Lymphocytes 1.2 thou/uL (1.20-3.40); #Monocytes 0.5 thou/uL (0.11-0.59); %Basophils 0.2 % (0.0-1.0); %Monocytes 7.4 % (0.0-10.0); %Neutrophils 72.4 % (42.0-75.0); Hemoglobin 7.5 g/dL (12.0-16.0); Mean Corpuscular HGB CONC 33.4 g/dL (32.0-36.0); Mean Corpuscular Hemoglobin 31.5 pg (27.0-31.0); Mean Corpuscular Volume 94.2 fl (81.0-99.0); Mean Platelet Volume 5.7 fL (7.4-10.4); Platelet Count 181 thou/uL (130-400); RBC Distribution Width 14.8 % (11.5-14.5); Red Blood Cell (RBC) Count 2.38 mill/uL (4.20-5.40); White Blood Cell (WBC) Count 6.9 thou/uL (4.8-10.8)
[2017-08-25 05:32] LABS: Anion Gap 13 mmol/L (10-20); BUN (Urea Nitrogen) 35 mg/dL (9.8-20.1); Calc. Creatinine Clearance 11 mL/min (70-130); Calcium 7.7 mg/dL (7.8-10.44); Carbon Dioxide 19 mmol/L (23-31); Chloride 107 mmol/L (98-107); Estimated GFR-MDRD 10; Glucose 106 mg/dL (83-110); Potassium 4.3 mmol/L (3.5-5.1); Sodium 135 mmol/L (136-145)
[2017-08-25] MEDS: Meropenem 1 GM in Sterile Water 20 ML SLOW IVP SCH ×2 (06:51→17:51)
[2017-08-25] MEDS: Atorvastatin Calcium 20 MG TAB PO SCH (08:46)
[2017-08-25] MEDS: Methimazole 5 MG TAB PO SCH (08:47)
[2017-08-25] MEDS: Polyethylene Glycol 3350 17 GM Packet PO SCH (08:48)
[2017-08-25] MEDS: Acetaminophen 325 MG TAB PO PRN (08:48)
--- NOTE | 2017-08-25 09:16 | PRG ---
DATE OF SERVICE: 08/24/2017 SUBJECTIVE: Patient was seen and examined at bedside and overnight events noted. Patient denies any shortness of breath or chest pain or palpitation. No history of nausea or vomiting or diarrhea or f ever or chills or cramps. OBJECTIVE: GENERAL: This is an elderly female in no apparent distress. VITAL SIGNS: Temperature 98.1, pulse 86, respiratory rate 18, blood pressure 119/70. HEENT: Atraumatic, normocephalic. Oral mucosa is moist. NECK: Supple. CARDIOVASCULAR: S1, S2 heard. Rate and rhythm regular. RESPIRATORY: Clear to auscultation. GASTROINTESTINAL: Abdomen is soft. MUSCULOSKELETAL: No tenderness. No edema. DERMATOLOGIC: No skin rash. NEUROLOGIC: Alert and awake and oriented x3. No focal neurologic deficits. Moving all the extremit ies. PSYCHIATRIC: Mood and affect normal. LABORATORY DATA: Hemoglobin is 8.8, potassium is 5.1, BUN is 44, and creatinine is 4.5. ASSESSMENT AND PLAN: 1. Acute kidney injury on chronic kidney disease stage 4. Renal function is stable. Avoid nephroto xins. Follow with Urology. 2. Bladder mass with hematuria. 3. Hyperkalemia, better. 4. Hyponatremia. 5. Anemia. 6. Left-sided hydronephrosis. Potassium is better. Creatinine is slightly better. We will follow. Follow up with Urology for fur ther plans.
[2017-08-25] MEDS: HYDROcodone/Acetaminophen 5/325 mg Tablet PO PRN ×2 (10:14→20:23)
[2017-08-25] MEDS: Famotidine 40 MG/4 ML VIAL SLOW IVP SCH (10:14)
--- NOTE | 2017-08-25 14:52 | PDOC.PN ---
- Subjective Encounter Start Date: 08/25/17 Encounter Start Time: 14:50 Subjective: no new events. no new complaints however feels that her stomach is bloated -: care discussed in extensive detail w daughter & Niece - Objective Resuscitation Status: Resuscitation Status DNR:Do Not Resuscitate MAR Reviewed: Yes Vital Signs & Weight: Vital Signs (12 hours) Temp Pulse Resp BP Pulse Ox 08/25/17 10:16 98.2 F 08/25/17 08:50 100.7 F H 08/25/17 08:00 98.2 F 84 18 92 L 08/25/17 04:47 99 F 94 18 100/58 L 92 L Weight Weight 140 lb 8 oz I&O: 08/24/17 08/25/17 08/26/17 06:59 06:59 06:59 Intake Total 63965 24665 6060 Output Total 81960 79872 [id number] [phone] [phone] Result Diagrams: 08/25/17 05:03 08/25/17 05:03 Additional Labs: Microbiology 08/24/17 12:00 Urine Nephrostomy tube Urine Culture - Preliminary NO GROWTH AT 24 HOURS 08/23/17 04:45 Urine hensley catheter Urine Culture - Preliminary NO GROWTH AT 24 HOURS Laboratory Tests 08/04/17 08/22/17 08/23/17 08:33 19:45 02:02 Creatinine 3.54 H 4.80 H 4.79 H 08/23/17 08/24/17 08/25/17 13:37 03:25 05:03 Creatinine 4.73 H 4.59 H 4.14 H Phys Exam - Physical Examination Constitutional: NAD pale HEENT: PERRLA, moist MMs, sclera anicteric, oral pharynx no lesions Neck: no nodes, no JVD, supple, full ROM Respiratory: no wheezing, no rales, no rhonchi, clear to auscultation bilateral Cardiovascular: RRR, no significant murmur Gastrointestinal: soft, positive bowel sounds distended,TTP mild ,diffusely Musculoskeletal: no edema, pulses present Neurological: non-focal, normal sensation, moves all 4 limbs Psychiatric: normal affect, A&O x 3 Skin: no rash Dx/Plan (1) Acute on chronic kidney failure Code(s): N17.9 - ACUTE KIDNEY FAILURE, UNSPECIFIED; N18.9 - CHRONIC KIDNEY DISEASE, UNSPECIFIED Status: Acute (2) Acute blood loss anemia Code(s): D62 - ACUTE POSTHEMORRHAGIC ANEMIA Status: Acute Comment: s/p 4 unit transfusion (3) Bladder cancer Status: Acute Comment: Path report pending (4) Hydronephrosis, left Code(s): N13.30 - UNSPECIFIED HYDRONEPHROSIS Status: Acute (5) Hematuria Code(s): R31.9 - HEMATURIA, UNSPECIFIED Status: Acute (6) Hyponatremia Code(s): E87.1 - HYPO-OSMOLALITY AND HYPONATREMIA Status: Acute (7) UTI (urinary tract infection) Status: Acute (8) Non-ischemic cardiomyopathy Code(s): I42.8 - OTHER CARDIOMYOPATHIES Status: Acute (9) HLD (hyperlipidemia) Code(s): E78.5 - HYPERLIPIDEMIA, UNSPECIFIED Status: Chronic - Plan plan discussed w/ family, PT/OT, social media developer, out of bed/ambulate, DVT proph w/SCDs cont current care. on meropenam.Follow final Cx results -: rest of the plan per urology.s/p L nephrostomy tube -: Cont bladder irrigation for hematuria.still some clots & blood in bag -: DC IVF for now as daughter concerned about arm swelling -: monitor H/H.transfuse if Hb<7. AM labs renal Fx slightly better. avoid nephrotoxins. nephrology following Review of Systems - Review of Systems Constitutional: weakness, malaise. negative: fever, chills, sweats, other ENT: negative: Ear Pain, Ear Discharge, Nose Pain, Nose Discharge, Nose Congestion, Mouth Pain, Mouth Swelling, Throat Pain, Throat Swelling, Other Respiratory: negative: Cough, Dry, Shortness of Breath, Hemoptysis, SOB with Excertion, Pleuritic Pain, Sputum, Wheezing Cardiovascular: negative: chest pain, palpitations, orthopnea, paroxysmal nocturnal dyspnea, edema, light headedness, other Gastrointestinal: Abdominal Pain. negative: Nausea, Vomiting, Diarrhea, Constipation, Melena, Hematochezia, Other Genitourinary: negative: Dysuria, Frequency, Incontinence, Hematuria, Retention , Other Musculoskeletal: negative: Neck Pain, Shoulder Pain, Arm Pain, Back Pain, Hand Pain, Leg Pain, Foot Pain, Other Skin: negative: Rash, Lesions, Humberto, Bruising, Other Neurological: negative: Weakness, Numbness, Incoordination, Change in Speech, Confusion, Seizures, Other - Medications/Allergies Allergies/Adverse Reactions: Allergies Allergy/AdvReac Type Severity Reaction Status Date / Time No Known Drug Allergies Allergy Verified 10/22/14 09:20 Medications: Current Medications Acetaminophen (Tylenol) 650 mg PO Q4H PRN PRN Reason: Pain Last Admin: 08/25/17 08:48 Dose: 650 mg Hydrocodone Bitart/Acetaminophen ([place] 5/325) 1 tab PO Q4H PRN PRN Reason: Pain Last Admin: 08/25/17 10:14 Dose: 1 tab Atorvastatin Calcium (Lipitor) 20 mg PO DAILY [facility] Last Admin: 08/25/17 08:46 Dose: 20 mg Epoetin Guanaco (Procrit) 10,000 units SC Q7D [facility] Last Admin: 08/23/17 14:07 Dose: 10,000 units Famotidine (Pepcid) 20 mg SLOW IVP Q24HR [facility] Last Admin: 08/25/17 10:14 Dose: Not Given Sodium Chloride (Normal Saline 0.9%) 1,000 mls @ 100 mls/hr IV .Q10H [facility] Last Admin: 08/25/17 12:37 Dose: 1,000 mls Meropenem 1 gm/ Sterile Water 20 mls @ 240 mls/hr SLOW IVP 0600,1800 [facility] Last Admin: 08/25/17 06:51 Dose: 20 mls Methimazole () 5 mg PO DAILY [facility] Last Admin: 08/25/17 08:47 Dose: 5 mg Metoprolol Succinate (Toprol Xl) 12.5 mg PO BID [facility] Last Admin: 08/25/17 10:14 Dose: Not Given Morphine Sulfate (Morphine) 2 mg SLOW IVP Q4H PRN PRN Reason: Breakthrough Pain Last Admin: 08/24/17 04:20 Dose: 2 mg Ondansetron HCl (Zofran) 4 mg IVP Q6H PRN PRN Reason: Nausea/Vomiting Last Admin: 08/24/17 04:28 Dose: 4 mg Oxycodone/Acetaminophen (Percocet 5/325) 1 tab PO Q4H PRN PRN Reason: Severe Pain (7-10) Last Admin: 08/23/17 05:33 Dose: 1 tab Polyethylene Glycol (Miralax) 17 gm PO DAILYPRN PRN PRN Reason: Constipation Polyethylene Glycol (Miralax) 17 gm PO DAILY [facility] Last Admin: 08/25/17 08:48 Dose: 17 gm Sodium Chloride (Flush - Normal Saline) 10 ml IVF Q12HR [facility] Last Admin: 08/25/17 11:16 Dose: 10 ml Sodium Chloride (Flush - Normal Saline) 10 ml IVF PRN PRN PRN Reason: Saline Flush Temazepam (Restoril) 30 mg PO HSPRN PRN PRN Reason: Insomnia Last Admin: 08/24/17 21:41 Dose: 30 mg
--- NOTE | 2017-08-25 17:11 | PRG ---
DATE OF SERVICE: 08/25/2017 SUBJECTIVE: Patient was seen and examined at bedside and overnight events noted. Patient denies any shortness of breath or chest pain or palpitation. No history of nausea or vomiting or diarrhea or f ever or chills or cramps. OBJECTIVE: GENERAL: This is a well-build female in no apparent distress. VITAL SIGNS: Temperature is 98.2, pulse 84, respiratory rate 18 and blood pressure 100/50. HEENT: Atraumatic, normocephalic. Oral mucosa is moist. NECK: Supple. CARDIOVASCULAR: S1, S2 heard. Rate and rhythm regular. RESPIRATORY: Clear to auscultation. GASTROINTESTINAL: Abdomen is soft. MUSCULOSKELETAL: No tenderness. No edema. DERMATOLOGIC: No skin rash. NEUROLOGIC: Alert and awake and oriented x3. No focal neurologic deficits. Moving all the extremit ies. PSYCHIATRIC: Mood and affect normal. LABORATORY DATA: Creatinine is 4.1 and potassium is 4.3. ASSESSMENT AND PLAN: 1. Acute kidney injury on chronic kidney stage IV. Renal function with slow improvement. 2. Bladder mass with hematuria, follow up with Urology. 3. Hyponatremia. 4. Hyperkalemia. 5. Anemia. 6. Left-sided hydronephrosis. 7. Follow up with Urology. Avoid nephrotoxins.
[2017-08-25] MEDS: Temazepam 15 MG CAP PO PRN (20:22)
--- NOTE | 2017-08-25 22:33 | PRG ---
DATE OF SERVICE: 08/25/2017 CHIEF COMPLAINT: She is currently in no pain, but does feel somewhat tired. OBJECTIVE: VITAL SIGNS: Most recently, temperature 98.2, T-max 100.7, blood pressure 100/ 58, pulse 94, O2 saturation 92% on room air. ABDOMEN: Protuberant but unchanged. No peritoneal signs. A Whitaker catheter draining red urine. PROCEDURE: A 3-way Whitaker catheter was removed and 2-way Whitaker catheter was placed, he was hand irrigated to remove clots from the bladder. A 3-way Whitaker catheter was then replaced and continuous bladder irrigation was reinitiated. Urine was clear and slow, CBI. PATHOLOGY: Muscle invasive high-grade transitional cell carcinoma. LABORATORY DATA: Creatinine 4.1 (4.8 on admission). Hemoglobin 7.5, down from 8.8. IMPRESSION: Ms. 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 She has a left nephrostomy tube in place and her kidney function is slowly improving. Her baseline creatinine is approximately 2. She has persistent significant hematuria, but a lot of this discoloration seems to be from clot as it was hand irrigated by me and is much clearer now. She is anemic. RECOMMENDATIONS: 1. Continuous bladder irrigation 2. Oncology consultation. 2. Recheck hemoglobin, hematocrit and consider a transfusion. 3. She may eventually have an antegrade stent placed. Once her renal function has stabilized, the percutaneous nephrostomy tube is the most reliable drainage at this point. [facility]
[2017-08-26] MEDS: HYDROcodone/Acetaminophen 5/325 mg Tablet PO PRN ×4 (01:48→20:34)
[2017-08-26] MEDS: Morphine 5 MG/ML SYRINGE SLOW IVP PRN ×2 (04:00→17:26)
[2017-08-26] MEDS: Meropenem 1 GM in Sterile Water 20 ML SLOW IVP SCH ×2 (04:01→17:27)
[2017-08-26 04:58] LABS: Anion Gap 12 mmol/L (10-20); BUN (Urea Nitrogen) 34 mg/dL (9.8-20.1); Calc. Creatinine Clearance 12 mL/min (70-130); Calcium 8.1 mg/dL (7.8-10.44); Carbon Dioxide 21 mmol/L (23-31); Chloride 107 mmol/L (98-107); Estimated GFR-MDRD 12; Glucose 110 mg/dL (83-110); Sodium 136 mmol/L (136-145)
[2017-08-26] MEDS: Atorvastatin Calcium 20 MG TAB PO SCH (07:25)
[2017-08-26] MEDS: Polyethylene Glycol 3350 17 GM Packet PO SCH (07:26)
[2017-08-26] MEDS: Famotidine 40 MG/4 ML VIAL SLOW IVP SCH (09:33)
[2017-08-26] MEDS: Methimazole 5 MG TAB PO SCH (09:33)
--- NOTE | 2017-08-26 12:33 | PRG ---
DATE OF SERVICE: 08/26/2017 SUBJECTIVE: The patient seen and examined at bedside. She feels weak, but she noticed that the blee ding is slowing down after yesterday's urologist visit when he repositioned and did some cleaning of area. OBJECTIVE: VITAL SIGNS: Blood pressure is 101/61, pulse is 92, respiratory rate is 16, temperature is 98.7, O2 saturations 93% on room air. HEENT: Atraumatic. Normocephalic. Her skin and teeth palish. Conjunctivae palish. Sclerae nonict elizabeth. Oral mucosa is moist. NECK: Supple. LUNGS: Clear. HEART: S1, S2 normal. No S3, no S4. ABDOMEN: Distended. Bowel sounds are present. It is not tender. EXTREMITIES: No clubbing, cyanosis. There is 1+ peripheral edema similar bilaterally. There is a t ube in the left lumbar area that is nephrostomy tube which is draining some bloodish fluid. LABORATORY DATA: Sodium of 136, potassium 4.0, chloride 107, CO2 21, BUN 34, creatinine 3.72. The r est of chemistry within normal limits. IMPRESSION: 1. Acute on chronic kidney failure. 2. Acute blood loss anemia. 3. Bladder cancer. 4. Hydronephrosis on the left status post nephrostomy placement. 5. Hematuria secondary to bleeding from the tumor. 6. Hyponatremia. 7. Urinary tract infection. 8. Nonischemic cardiomyopathy. 9. Hyperlipidemia. PLAN: Check H&H tomorrow morning. Transfuse as needed. Consultation with Dr. Booth for oncology evaluation. Continue meropenem 1 gram. Every 12 hours IV piggyback. Continue Epogen 10,000 units 7 days. Continue metoprolol succinate and the next step will depend on the progress of her hematuria treatment and Oncology input.
--- NOTE | 2017-08-26 17:24 | PRG ---
DATE OF SERVICE: 08/26/2017 SUBJECTIVE: Patient was seen and examined at bedside and overnight events noted. Patient denies any shortness of breath or chest pain or palpitation. No history of nausea or vomiting or diarrhea or f ever or chills or cramps. OBJECTIVE: GENERAL: This is a well-built female, in no apparent distress. VITAL SIGNS: Temperature 97, pulse 92, respiratory rate 16, blood pressure 101/61. HEENT: Atraumatic, normocephalic, oral mucosa is moist. NECK: Supple. CARDIOVASCULAR: S1, S2 heard, rate and rhythm regular. RESPIRATORY: Clear to auscultation. GASTROINTESTINAL: Abdomen is soft. MUSCULOSKELETAL: No tenderness, no edema. DERMATOLOGIC: No skin rash. NEUROLOGIC: Alert and awake and oriented x3. No focal neurologic deficits. Moving all the extremit ies. PSYCHIATRIC: Mood and affect normal. LABORATORY DATA: Potassium is 4.0, BUN is 34, creatinine is 3.7. ASSESSMENT AND PLAN: 1. Acute kidney injury on chronic kidney, stage 4, with baseline creatinine of 2.5 and currently cre atinine is 3.7, much better from 4.7. Continue supportive care. 2. Bladder mass with hematuria. Follow with Urology. 3. Hyperkalemia. 4. Hyponatremia. 5. Anemia of chronic disease. 6. Left-sided hydronephrosis. Plan is to continue on supportive care. We will follow.
[2017-08-26] MEDS: Temazepam 15 MG CAP PO PRN (22:04)
--- NOTE | 2017-08-27 00:37 | TCOM ---
DATE OF SERVICE: 08/26/2017 CHIEF COMPLAINT: Some mild left flank pain with a nephrostomy tube site. OBJECTIVE: VITAL SIGNS: Temperature 98.7, pulse 92, blood pressure 101/61. ABDOMEN: Distended (no change). No peritoneal signs. GENITOURINARY: A Whitaker catheter in place draining out lightly blood tinged urine, very slow continuo us bladder irrigation. LABORATORY DATA: Creatinine 3.7. IMPRESSION: Ms. Mo has muscle invasive bladder cancer with obstruction of the left kidney. Her renal function is improving with left nephrostomy tube placement. The hematuria has improved signif icantly. It is hopeful that the continuous bladder irrigation can be disconnected tomorrow based on the improv ement in her kidney function. She may be able to be discharged home if the drainage is acceptable of f CBI.
[2017-08-27 05:19] LABS: #Eosinphils 0.3 thou/uL (0.0-0.7); #Lymphocytes 1.2 thou/uL (1.20-3.40); #Monocytes 0.4 thou/uL (0.11-0.59); #Neutrophils 4.6 thou/uL (1.40-6.50); %Basophils 0.1 % (0.0-1.0); %Lymphocytes 18.6 % (21.0-51.0); %Monocytes 6.2 % (0.0-10.0); %Neutrophils 71.2 % (42.0-75.0); Mean Corpuscular HGB CONC 32.7 g/dL (32.0-36.0); Mean Corpuscular Hemoglobin 30.9 pg (27.0-31.0); Mean Corpuscular Volume 94.5 fl (81.0-99.0); Mean Platelet Volume 5.7 fL (7.4-10.4); Platelet Count 229 thou/uL (130-400); RBC Distribution Width 14.6 % (11.5-14.5); Red Blood Cell (RBC) Count 2.58 mill/uL (4.20-5.40); White Blood Cell (WBC) Count 6.4 thou/uL (4.8-10.8)
[2017-08-27 05:32] LABS: Anion Gap 13 mmol/L (10-20); BUN (Urea Nitrogen) 33 mg/dL (9.8-20.1); Calc. Creatinine Clearance 12 mL/min (70-130); Calcium 8.1 mg/dL (7.8-10.44); Carbon Dioxide 21 mmol/L (23-31); Chloride 106 mmol/L (98-107); Estimated GFR-MDRD 12; Glucose 97 mg/dL (83-110); Potassium 3.8 mmol/L (3.5-5.1); Sodium 136 mmol/L (136-145)
[2017-08-27] MEDS: Meropenem 1 GM in Sterile Water 20 ML SLOW IVP SCH (06:29)
[2017-08-27] MEDS: HYDROcodone/Acetaminophen 5/325 mg Tablet PO PRN ×2 (06:29→10:32)
[2017-08-27 08:00] VITALS: BP 107/55; TEMP 98.3
[2017-08-27] MEDS: Methimazole 5 MG TAB PO SCH (08:35)
[2017-08-27] MEDS: Atorvastatin Calcium 20 MG TAB PO SCH (08:36)
[2017-08-27] MEDS: Polyethylene Glycol 3350 17 GM Packet PO SCH (08:36)
[2017-08-27] MEDS: Acetaminophen 325 MG TAB PO PRN (09:51)
--- NOTE | 2017-08-27 12:44 | PDOC.PN ---
- Subjective Encounter Start Date: 08/27/17 Encounter Start Time: 09:45 -: old records requested/rev Patient seen and examined. No new complaints. No overnight events - Objective Resuscitation Status: Resuscitation Status DNR:Do Not Resuscitate MAR Reviewed: Yes Vital Signs & Weight: Vital Signs (12 hours) Temp Pulse Resp BP Pulse Ox Pulse Ox 08/27/17 10:12 94 L 08/27/17 08:00 98.3 F 100 16 107/55 L 93 L Weight Weight 140 lb 8 oz I&O: 08/26/17 08/27/17 08/28/17 06:59 06:59 06:59 Intake Total 6860 260 Output Total 15479 6375 150 Balance -5065 -6115 -150 Result Diagrams: 08/27/17 04:55 08/27/17 04:55 Phys Exam - Physical Examination Constitutional: NAD HEENT: PERRLA, moist MMs, sclera anicteric Neck: no JVD, supple Respiratory: no wheezing, no rales, no rhonchi Cardiovascular: RRR, no significant murmur, no rub Gastrointestinal: soft, non-tender, no distention, positive bowel sounds Musculoskeletal: no edema, pulses present Neurological: non-focal, normal sensation nephrostomy and hensley+ Lymphatic: no nodes Psychiatric: normal affect, A&O x 3 Skin: no rash, normal turgor Dx/Plan (1) Acute blood loss anemia Code(s): D62 - ACUTE POSTHEMORRHAGIC ANEMIA Status: Acute Comment: s/p 4 unit transfusion (2) Acute worsening of stage 4 chronic kidney disease Code(s): N28.9 - DISORDER OF KIDNEY AND URETER, UNSPECIFIED; N18.4 - CHRONIC KIDNEY DISEASE, STAGE 4 (SEVERE) Status: Acute (3) Bladder cancer Status: Acute Comment: Path report pending (4) HLD (hyperlipidemia) Code(s): E78.5 - HYPERLIPIDEMIA, UNSPECIFIED Status: Chronic (5) Hydronephrosis, left Code(s): N13.30 - UNSPECIFIED HYDRONEPHROSIS Status: Acute (6) Hyponatremia Code(s): E87.1 - HYPO-OSMOLALITY AND HYPONATREMIA Status: Acute - Plan cont current plan of care, plan discussed w/ family, continue antibiotics * oncology consulted * urology ok with discharge * medication reviewed as below * symptomatic treatment * discussed with family * see discharge summery. Review of Systems - Review of Systems ENT: negative: Ear Pain, Ear Discharge, Nose Pain, Nose Discharge, Nose Congestion, Mouth Pain, Mouth Swelling, Throat Pain, Throat Swelling, Other Respiratory: negative: Cough, Dry, Shortness of Breath, Hemoptysis, SOB with Excertion, Pleuritic Pain, Sputum, Wheezing Cardiovascular: negative: chest pain, palpitations, orthopnea, paroxysmal nocturnal dyspnea, edema, light headedness, other Gastrointestinal: negative: Nausea, Vomiting, Abdominal Pain, Diarrhea, Constipation, Melena, Hematochezia, Other Genitourinary: negative: Dysuria, Frequency, Incontinence, Hematuria, Retention , Other Musculoskeletal: negative: Neck Pain, Shoulder Pain, Arm Pain, Back Pain, Hand Pain, Leg Pain, Foot Pain, Other Skin: negative: Rash, Lesions, Humberto, Bruising, Other - Medications/Allergies Allergies/Adverse Reactions: Allergies Allergy/AdvReac Type Severity Reaction Status Date / Time No Known Drug Allergies Allergy Verified 10/22/14 09:20 Medications: Current Medications Acetaminophen (Tylenol) 650 mg PO Q4H PRN PRN Reason: Pain Last Admin: 08/27/17 09:51 Dose: 650 mg Hydrocodone Bitart/Acetaminophen ([place] 5/325) 1 tab PO Q4H PRN PRN Reason: Pain Last Admin: 08/27/17 10:32 Dose: 1 tab Atorvastatin Calcium (Lipitor) 20 mg PO DAILY [facility] Last Admin: 08/27/17 08:36 Dose: 20 mg Epoetin Guanaco (Procrit) 10,000 units SC Q7D [facility] Last Admin: 08/23/17 14:07 Dose: 10,000 units Meropenem 1 gm/ Sterile Water 20 mls @ 240 mls/hr SLOW IVP 0600,1800 [facility] Last Admin: 08/27/17 06:29 Dose: 20 mls Methimazole () 5 mg PO DAILY [facility] Last Admin: 08/27/17 08:35 Dose: 5 mg Metoprolol Succinate (Toprol Xl) 12.5 mg PO BID [facility] Last Admin: 08/27/17 08:36 Dose: 12.5 mg Morphine Sulfate (Morphine) 2 mg SLOW IVP Q4H PRN PRN Reason: Breakthrough Pain Last Admin: 08/26/17 17:26 Dose: 2 mg Ondansetron HCl (Zofran) 4 mg IVP Q6H PRN PRN Reason: Nausea/Vomiting Last Admin: 08/24/17 04:28 Dose: 4 mg Oxycodone/Acetaminophen (Percocet 5/325) 1 tab PO Q4H PRN PRN Reason: Severe Pain (7-10) Last Admin: 08/23/17 05:33 Dose: 1 tab Polyethylene Glycol (Miralax) 17 gm PO DAILYPRN PRN PRN Reason: Constipation Polyethylene Glycol (Miralax) 17 gm PO DAILY [facility] Last Admin: 08/27/17 08:36 Dose: Not Given Sodium Chloride (Flush - Normal Saline) 10 ml IVF Q12HR [facility] Last Admin: 08/27/17 08:36 Dose: 10 ml Sodium Chloride (Flush - Normal Saline) 10 ml IVF PRN PRN PRN Reason: Saline Flush Last Admin: 08/25/17 17:51 Dose: 10 ml Temazepam (Restoril) 30 mg PO HSPRN PRN PRN Reason: Insomnia Last Admin: 08/26/17 22:04 Dose: 30 mg
--- NOTE | 2017-08-27 12:49 | CON ---
DATE OF CONSULTATION: 08/27/2017 REASON FOR CONSULTATION: Bladder cancer. HISTORY OF PRESENT ILLNESS: Ms. Mo is an 82-year-old female, who has a history of rec urrent urinary tract infection. She had a Whitaker catheter placed by Dr. Douglas Mckee approximately 2 weeks ago, she then had significant gross hematuria with a drop in hemoglobin to 8.5. Her creatini ne increased to 4.7. She had an ultrasound which showed a left hydronephrosis. She was admitted for further treatment and evaluation. Dr. Mckee performed cystoscopy with clot evacuation, TURBT, and left nephrostomy tube placement. She has been on bladder irrigation, which was stopped yesterday af ternoon. She returned muscle invasive transitional cell carcinoma. The patient has a history of car diomyopathy with pacemaker placement. She has had breast cancer with lumpectomy over 20 years ago, t reated by Dr. Booth. She denies any complaints at this time. No chest pain or shortness of breath . No abdominal pain. Her Whitaker catheter remains in place. We were asked to see the patient regardi ng possible treatment options. PAST MEDICAL HISTORY: 1. Rheumatoid arthritis. 2. History of breast cancer. 3. Cardiomyopathy with an EF of 35%. 4. Coronary artery disease. 5. Chronic kidney disease, stage IV. PAST SURGICAL HISTORY: Pacemaker placement, lumpectomy, multiple orthopedic surgeries. ALLERGIES: No known drug allergies. HOME MEDICATIONS: 1. Tylenol p.r.n. 2. Atorvastatin 20 mg daily. 3. Cipro q.12 hours. 4. Methimazole 5 mg daily. 5. Toprol-XL 12.5 mg b.i.d. 6. MiraLax daily. 7. Potassium citrate 10 mEq b.i.d. 8. Restoril p.r.n. FAMILY HISTORY: Noncontributory. SOCIAL HISTORY: She is and lives with her in [place], 2 grown children. No alc ohol, tobacco or illicit drug use. REVIEW OF SYSTEMS: A 12-point review of systems is negative except for noted in HPI. PHYSICAL EXAMINATION: VITAL SIGNS: Temperature is 98.3, pulse is 100, respiratory rate 16, BP is 107/55. She is 94% on ro om air. GENERAL: This is a well-developed, well-nourished female, in no acute distress. HEENT: Normocephalic, atraumatic. Pupils equal and reactive to light. NECK: Supple. CARDIOVASCULAR: Regular rate and rhythm. She has a pacemaker in left chest. LUNGS: Clear. ABDOMEN: Distended, soft. Bowel sounds are positive. GENITOURINARY: She has a nephrostomy tube in place with clear yellow urine. EXTREMITIES: 1+ edema in her lower extremities bilaterally. SKIN: There is no rash. HEMATOLOGIC: She has scattered bruising, no petechia. NEUROLOGICAL: Nonfocal. PSYCHIATRIC: The patient is alert and oriented and appropriate. PERTINENT LABORATORY AND X-RAYS: Current WBCs are 6.4, hemoglobin 8.0, hematocrit 24.3, platelet cou nt 229,000. PT is 14.9, INR is 1.2, PTT is 24.4. Sodium is 136, potassium 3.8, chloride 106, CO2 is 21, BUN is 33, creatinine 3.66, GFR is 12, calcium is 8.1. Her abdominal CT showed no evidence of m etastatic disease. IMPRESSION: 1. Transitional cell carcinoma. 2. Left hydronephrosis, status post left nephrostomy tube. DISCUSSION: The patient is not a surgical candidate. With her decreased renal function, she would n ot be able to get cisplatin; however, she may tolerate carboplatin and Taxol with radiation. This wa s discussed with both the patient and the daughter. The patient is leaning towards no treatment at t his time, but agrees to follow up in the outpatient setting for discussion of prognosis and available treatment options. Clinic information was provided. She is being discharged home and will follow u p in the next 2 weeks, but right after discussion, the case was discussed with Dr. Booth.
--- NOTE | 2017-08-27 14:28 | DIS ---
DATE OF ADMISSION: 08/22/2017 DATE OF DISCHARGE: 08/27/2017 PRIMARY CARE PHYSICIAN: Dr. Anil Childress. DISCHARGE DISPOSITION: Home with home health. PRIMARY DISCHARGE DIAGNOSES: Acute on chronic kidney failure, baseline chronic kidney disease stage 4, bladder cancer (transitional cell carcinoma) left hydronephrosis required a left nephrostomy tube placement, acute blood loss anemia requiring 1 unit of blood transfusion, hyponatremia. SECONDARY DISCHARGE DIAGNOSIS: Dyslipidemia. PRIMARY PROCEDURE/OPERATION: Bladder irrigation, left nephrostomy. RADIOLOGICAL INVESTIGATION: Abdomen and pelvis CT scan, renal ultrasound. SIGNIFICANT LABS: Hemoglobin 8.0. INR 1.2, creatinine 3.66. Urinalysis, hematuria. Urine culture negative. DISCHARGE MEDICATIONS: Tylenol 650 mg p.o. b.i.d., Lipitor 20 mg p.o. daily, Cipro 250 mg p.o. b.i.d ., methimazole 5 mg p.o. daily, Toprol-XL 12.5 mg p.o. b.i.d., MiraLax 17 grams p.o. at bedtime, Uroc it-K 10 mEq p.o. b.i.d., Restoril 30 mg p.o. at bedtime p.r.n., tramadol 50 mg p.o. t.i.d. p.r.n. CONTRAINDICATIONS: None. CODE STATUS: DNR. INPATIENT CONSULTANTS: Dr. Blackmon was following while in hospital. Dr. Mckee was consu lted while in hospital. Dr. Galo Hudson consulted while in hospital. TEST RESULTS PENDING ON DISCHARGE: None. ALLERGIES: No known drug allergy. DISCHARGE PLAN: Post hospital, the patient will follow up with the above-mentioned fashion consultant as ins tructed. HOSPITAL COURSE: An 82-year-old female who was admitted by Dr. Cesar Long and Dr. Long. Please see her H&P for further detail. The patient was admitted for hematuria and dysuria. She had CT of the abdomen and pelvis, which showed left hydronephrosis. She was having hematuria and that is why s he had blood loss anemia. Totally, she was given 4 units of blood transfusion during this admission. Her renal function was slightly improved back to baseline level. Her pathology report from bladder tumor came back positive for transitional cell carcinoma and that is why Oncology was consulted. Overall, this patient is doing well. The patient does not want to go for any kind of aggressive chem otherapy or radiation therapy. The patient was DNR while in hospital. All new medication prescripti on given to her pharmacy. No prescription for Cipro was sent for 500 mg p.o. b.i.d., but we advised her to take 250 mg p.o. b.i.d., tramadol prescription also given for pain. The patient is seen and examined at bedside today. Plan of care discussed with the family member. Neelima hawk see my progress note from today for further details.
--- NOTE | 2017-08-27 22:04 | PRG ---
DATE OF SERVICE: 08/27/2017 SUBJECTIVE: Patient was seen and examined at bedside and overnight events noted. Patient denies any shortness of breath or chest pain or palpitation. No history of nausea or vomiting or diarrhea or f ever or chills or cramps. OBJECTIVE: GENERAL: This is a well-built female in no apparent distress. VITAL SIGNS: Temperature is 98.3, pulse 100, respiratory rate 16 and blood pressure 107/55. HEENT: Atraumatic, normocephalic. Oral mucosa is moist. NECK: Supple. CARDIOVASCULAR: S1, S2 heard. Rate and rhythm regular. RESPIRATORY: Clear to auscultation. GASTROINTESTINAL: Abdomen is soft. MUSCULOSKELETAL: No tenderness. No edema. DERMATOLOGIC: No skin rash. NEUROLOGIC: Alert and awake and oriented x3. No focal neurologic deficits. Moving all the extremit ies. PSYCHIATRIC: Mood and affect normal. LABORATORY DATA: Potassium is 3.8, BUN is 33 and creatinine is 3.6. ASSESSMENT AND PLAN: 1. Acute kidney injury on chronic kidney stage IV, currently with improvement. 2. Bladder mass. Follow up with Oncology. 3. Hyperkalemia. 4. Hyponatremia. 5. Anemia of chronic disease. 6. Follow up as outpatient.
== END 2017-08-27 15:20 | disposition home health service (06) | DRG 669 ==
LOC: ERS 22:32 → 2SE 23:36 → T4-B 08-24 07:00
PROVIDERS: ADMIT Internal Medicine; ATTEND Internal Medicine
PROC: 30233N1 Transfusion of Nonautologous Red Blood Cells into Peripheral Vein, Percutaneous Approach (ICD-10-PCS; 2017-08-23)
PROC: 0TBB8ZX Excision of Bladder, Via Natural or Artificial Opening Endoscopic, Diagnostic (ICD-10-PCS; principal; 2017-08-24)
PROC: 0T9130Z Drainage of Left Kidney with Drainage Device, Percutaneous Approach (ICD-10-PCS; 2017-08-24)
DX: C67.9 Malignant neoplasm of bladder, unspecified (principal); I42.8 Other cardiomyopathies; E87.5 Hyperkalemia; E87.8 Other disorders of electrolyte and fluid balance, not elsewhere classified; N17.9 Acute kidney failure, unspecified; N18.4 Chronic kidney disease, stage 4 (severe); D62 Acute posthemorrhagic anemia; E87.1 Hypo-osmolality and hyponatremia; N39.0 Urinary tract infection, site not specified; N13.6 Pyonephrosis; I44.7 Left bundle-branch block, unspecified; M19.90 Unspecified osteoarthritis, unspecified site; I25.10 Atherosclerotic heart disease of native coronary artery without angina pectoris; Z85.3 Personal history of malignant neoplasm of breast; Z96.653 Presence of artificial knee joint, bilateral; Z96.643 Presence of artificial hip joint, bilateral; Z66 Do not resuscitate; F51.04 Psychophysiologic insomnia; D63.1 Anemia in chronic kidney disease; E78.5 Hyperlipidemia, unspecified; Z95.0 Presence of cardiac pacemaker; M06.9 Rheumatoid arthritis, unspecified; R31.0 Gross hematuria; Z92.21 Personal history of antineoplastic chemotherapy; Z92.3 Personal history of irradiation
CPT/HCPCS: 36415; 36430; 74150; 74420; 76000; 76770; 77002; 80048; 81003; 85025; 85610; 85730; 86850; 86900; 86901; 87086; 88305; 88307; 93005; 93010; 96374; 99152; 99153; J2270; A4216; C1729; C1758; C1769; G8978-GP-CL; G8979-GP-CJ; G8987-GO-CK; G8988-GO-CI; J1940; J2001; J2185; J2250; J2405; J2704; J3010; P9016; Q4081; Q9961